=== PATIENT | female | born 1970 | race African-American/Black ===

== ENCOUNTER 2018-12-12 17:03 | Emergency (ER) | payer MEDICAID ==
[~2018-12-12] VITALS: Ht 165.1 cm; Wt 149.7 kg
[2018-12-12 17:35] VITALS: BP_SYST 164
--- NOTE | 2018-12-12 17:38 | NUR ---
Patient to ER bed 3 to gown for evaluation. Side rails up.
--- NOTE | 2018-12-12 17:44 | NUR ---
pt arrives from home w/ c/o 11/16 SEGOVIA x 1 week. pt reports that she has had this pain before. Further states she she has "TMJ". No other c/o at the moment
--- NOTE | 2018-12-12 17:52 | NUR ---
Geeta Wilson [employer] at bedside examining patient.
[2018-12-12] MEDS: HYDROcodone/ACETAMIN 7.5-325 MG TAB PO ONE (17:57)
[2018-12-12] MEDS: KETOROLAC TROMETHAMINE 60 MG/2 ML VIAL IM ONE (17:58)
[2018-12-12 18:24] VITALS: BP_SYST 164
--- NOTE | 2018-12-12 18:26 | NUR ---
Patient given written and verbal discharge instructions and verbalizes understanding. ER MD discussed with patient the results and treatment provided. Patient in stable condition. ID arm band removed. Rx of Motrin and Tramadol given. Patient educated on pain management and to follow up with PMD. Pain Scale 3/10. Opportunity for questions provided and answered. Medication side effect fact sheet provided.
== END 2018-12-12 18:24 | disposition home or self-care (01) ==
LOC: SED 17:03
DX: M26.622 Arthralgia of left temporomandibular joint (principal)
CPT/HCPCS: 96372; 99283; J1885